=== PATIENT | female | born 1975 | race Caucasian/White ===

== ENCOUNTER 2023-06-29 06:09 | Emergency (ER) | payer BC, MEDICAID ==
[2023-06-29] MEDS ORDERED: Ibuprofen 400 MG Tab PO ONE (06:38)
== END 2023-06-29 07:36 | disposition home or self-care (01) ==
LOC: JP.ED 06:09
DX: R50.9 Fever, unspecified (principal); E11.9 Type 2 diabetes mellitus without complications; Z88.0 Allergy status to penicillin; Z79.899 Other long term (current) drug therapy; Z72.0 Tobacco use; Z20.822 Contact with and (suspected) exposure to COVID-19
CPT/HCPCS: 87635; 99283; A9270; U0002